=== PATIENT | male | born 1990 | race Caucasian/White ===

== ENCOUNTER 2019-11-25 09:36 | Emergency (ER) | payer SELFPAY ==
[~2019-11-25] VITALS: Ht 175.3 cm; Wt 79.0 kg
[2019-11-25 09:41] VITALS: BP 122/76
--- NOTE | 2019-11-25 11:33 | NUR ---
Patient given discharge instructions and they have confirmed that they understand the instructions. Patient ambulatory with steady gait.
== END 2019-11-25 11:35 | disposition home or self-care (01) ==
LOC: ED 10:42
DX: R51 Headache (principal); K08.89 Other specified disorders of teeth and supporting structures
CPT/HCPCS: 99281